=== PATIENT | male | born 1990 | race Caucasian/White ===

== ENCOUNTER 2016-12-29 02:35 | Emergency (ER) | payer BC, OTHER ==
[2016-12-29] MEDS ORDERED: SODIUM CHLORIDE 0.9% 1000ML 1,000 ML IVS ONE (02:57)
[2016-12-29] MEDS ORDERED: KETOROLAC TROMETHAMINE INJ 30 MG/ML VIAL IV ONE (02:57)
--- NOTE | 2016-12-29 02:59 | ED.PDOC ---
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 He often has back pain, however this pain is not similar to that. The pain is severe. He denies any hematuria or dysuria. He has never had Kidney stones. Timing/Duration: 1 hour Severity: severe Improving Factors: nothing Worsening Factors: nothing Associated Symptoms: nausea/vomiting Allergies/Adverse Reactions: Allergies NO KNOWN ALLERGY Allergy (Unverified 12/09/13 22:21) Home Medications: Ambulatory Orders Ketorolac Tromethamine [Toradol Tabs] 10 mg PO Q6H PRN #20 tab 12/29/16 Ondansetron [Zofran Odt] 4 mg PO Q8H PRN #10 tab 12/29/16 Tamsulosin HCl [Flomax] 0.4 mg PO DAILY PRN #10 cap 12/29/16 Tramadol HCl 50 mg PO Q4H PRN #15 tab 12/29/16 Review of Systems - Review of Systems Constitutional: States: no symptoms reported EENTM: States: no symptoms reported Respiratory: States: no symptoms reported Cardiology: States: no symptoms reported Gastrointestinal/Abdominal: States: nausea Genitourinary: States: no symptoms reported Musculoskeletal: States: back pain Skin: States: no symptoms reported Neurological: States: no symptoms reported Endocrine: States: no symptoms reported Hematologic/Lymphatic: States: no symptoms reported All other Systems: Reviewed and Negative Past Medical History (General) - Patient Medical History Hx Seizures: No Hx Stroke: No Hx Dementia: No Hx Asthma: No Hx of COPD: No Hx Cardiac Disorders: No Hx Congestive Heart Failure: No Hx Pacemaker: No Hx Hypertension: No Hx Thyroid Disease: No Hx Diabetes: No Hx Gastroesophageal Reflux: No Hx Renal Disease: No Hx Cancer: No Hx of HIV: No Hx Hepatitis C: No Hx MRSA: No - Vaccination History Hx Tetanus, Diphtheria Vaccination: Yes Hx Influenza Vaccination: No Hx Pneumococcal Vaccination: No Immunizations Up to Date: Yes - Social History Hx Tobacco Use: Yes Hx Alcohol Use: No Family Medical History - Family History Mother Family History: Unknown Physical Exam - Physical Exam General Appearance: Anxious, Obvious distress Ears, Nose, Throat: hearing grossly normal Respiratory: lungs clear, normal breath sounds, no respiratory distress, no accessory muscle use Cardiovascular/Chest: regular rate, rhythm, no edema, no gallop, no murmur Gastrointestinal/Abdominal: normal bowel sounds, non tender, soft, no organomegaly Back Exam: normal inspection, no CVA tenderness, no vertebral tenderness Extremity: normal range of motion Neurologic: alert, normal mood/affect, oriented x 3 Skin Exam: normal color, warm/dry Progress - Progress Progress: 12/29/16 05:55 PATIENT'S PAIN WAS WELL-CONTROLLED WITH TORADOL. - Results/Orders Results/Orders: 12/29/16 12/29/16 12/29/16 02:44 02:48 03:48 Temperature 97.1 F L Pulse Rate [ 77 77 72 Left Radial] Respiratory 20 20 18 Rate Blood Pressure 124/97 115/72 [Left Arm] O2 Sat by Pulse 100 98 Oximetry 12/29/16 12/29/16 04:29 05:03 Temperature Pulse Rate [ 66 60 Left Radial] Respiratory 18 18 Rate Blood Pressure 111/72 104/59 [Left Arm] O2 Sat by Pulse 96 96 Oximetry Laboratory Results Urine Color Yellow (Yellow) 12/29/16 04:10 Urine Appearance Sl cloudy (Clear) 12/29/16 04:10 Urine pH 6.5 (4.5-7.8) 12/29/16 04:10 Ur Specific [place] 1.025 (1.005-1.030) 12/29/16 04:10 Urine Protein Negative mg/dL 12/29/16 04:10 Urine Glucose (UA) Negative mg/dL (Negative) 12/29/16 04:10 Urine Ketones Negative mg/dL (NEGATIVE) 12/29/16 04:10 Urine Blood Large (Negative) H 12/29/16 04:10 Urine Nitrite Negative 12/29/16 04:10 Urine Bilirubin Negative (NEGATIVE) 12/29/16 04:10 Urine Urobilinogen 1.0 mg/dL (0.2-1.0) 12/29/16 04:10 Ur Leukocyte Esterase Negative (Negative) 12/29/16 04:10 Urine RBC Tntc /hpf H 12/29/16 04:10 Urine WBC 0-1 /hpf 12/29/16 04:10 Ur Epithelial Cells 0 /hpf 12/29/16 04:10 Urine Bacteria 0 12/29/16 04:10 Urine Mucus Moderate 12/29/16 04:10 - EKG/XRAY/CT CT: ABD/PELV: 2MM PARTIALLY OBST R URETERAL STONE CT Ordered: Yes CT Interpretation Call Back: No - REPORT SENT Departure - Departure Clinical Impression: Ureteral calculus Time of Disposition: 05:56 Disposition: Discharge to Home or Self Care Condition: Excellent Departure Forms: ED Discharge - Pt. Copy, Patient Portal Self Enrollment Instructions: Kidney Stones -- Adult, DI for Kidney Stones Diet: resume usual diet Prescriptions: Tamsulosin HCl [Flomax] 0.4 mg PO DAILY PRN #10 cap PRN Reason: Pain Ketorolac Tromethamine [Toradol Tabs] 10 mg PO Q6H PRN #20 tab PRN Reason: Pain Tramadol HCl 50 mg PO Q4H PRN #15 tab PRN Reason: Pain Ondansetron [Zofran Odt] 4 mg PO Q8H PRN #10 tab PRN Reason: Nausea/Vomiting Home Medications: Ambulatory Orders Ketorolac Tromethamine [Toradol Tabs] 10 mg PO Q6H PRN #20 tab 12/29/16 Ondansetron [Zofran Odt] 4 mg PO Q8H PRN #10 tab 12/29/16 Tamsulosin HCl [Flomax] 0.4 mg PO DAILY PRN #10 cap 12/29/16 Tramadol HCl 50 mg PO Q4H PRN #15 tab 12/29/16 Additional Instructions: Stay well-hydrated. Follow up if symptoms worsen.
--- NOTE | 2016-12-29 05:38 | CT ---
EXAM DESCRIPTION: Abdoment/Pelvis w/o Contrast12/29/2016 5:35 AM [employer]ER CLINICAL HISTORY: 26 years, Male, right flank pain/hematuria COMPARISON: [None.] TECHNIQUE: Volumetric CT acquisition was performed through the abdomen and pelvis. Images in the axial and coronal planes were presented for interpretation FINDINGS: [The visualized portions of the lung bases are clear.] [The cardiomediastinal structures are within normal limits.] [Within the upper abdomen, the liver and spleen are normal in size and morphology.]The gallbladder is [normal in morphology]. [The intra/extrahepatic biliary tree is normal in appearance]. [The pancreas and adrenal glands are normal.] The right kidney is edematous and enlarged. There is a 2 mm partially obstructing stone in the mid right ureter on axial image 46. There is mild right-sided hydronephrosis and proximal hydroureter. There is an additional 2 mm nonobstructing stone in the mid right renal collecting system on axial image 37. There are no additional distal obstructing stones. The left kidney is normal in size and the left ureter is normal in course and caliber. There are two nonobstructing stones in the inferior pole of the left renal collecting system measuring between 1 and 2 mm in diameter. There are no distal obstructing stones or evidence of hydronephrosis/hydroureter. [Stomach and small intestines are within normal limits without evidence of bowel dilation or wall thickening.] The appendix is well-visualized and normal, best seen on axial image 48 posterior to the cecum. [The colon is stool filled and unremarkable.][Within the pelvis, the bladder and rectum are normal.] The prostate is age appropriate. [There are no pathologically enlarged inguinal, retroperitoneal, portacaval, or mesenteric lymph nodes.] [The soft tissue structures of the abdominal wall are normal.] [The visualized osseous structures are within normal limits for the patient's age.] [The abdominal aorta and its primary branches are normal in course and caliber]. Limited evaluation of the venous structures demonstrates no gross abnormalities. IMPRESSION: 1. Partially obstructing 2 mm mid right ureteral stone.2. Additional nonobstructing bilateral renal calculi. Electronically signed by: Claudio Cramer MD 12/29/2016 5:37 AM [employer]
[2016-12-29 06:10] VITALS: BP 100/60; TEMP 98.3; O2SAT 98
--- NOTE | 2017-01-23 07:35 | CT ---
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 Images in the axial and coronal planes were presented for interpretation FINDINGS: [The visualized portions of the lung bases are clear.] [The cardiomediastinal structures are within normal limits.] [Within the upper abdomen, the liver and spleen are normal in size and morphology.]The gallbladder is [normal in morphology]. [The intra/extrahepatic biliary tree is normal in appearance]. [The pancreas and adrenal glands are normal.] The right kidney is edematous and enlarged. There is a 2 mm partially obstructing stone in the mid right ureter on axial image 46. There is mild right-sided hydronephrosis and proximal hydroureter. There is an additional 2 mm nonobstructing stone in the mid right renal collecting system on axial image 37. There are no additional distal obstructing stones. The left kidney is normal in size and the left ureter is normal in course and caliber. There are two nonobstructing stones in the inferior pole of the left renal collecting system measuring between 1 and 2 mm in diameter. There are no distal obstructing stones or evidence of hydronephrosis/hydroureter. [Stomach and small intestines are within normal limits without evidence of bowel dilation or wall thickening.] The appendix is well-visualized and normal, best seen on axial image 48 posterior to the cecum. [The colon is stool filled and unremarkable.][Within the pelvis, the bladder and rectum are normal.] The prostate is age appropriate. [There are no pathologically enlarged inguinal, retroperitoneal, portacaval, or mesenteric lymph nodes.] [The soft tissue structures of the abdominal wall are normal.] [The visualized osseous structures are within normal limits for the patient's age.] [The abdominal aorta and its primary branches are normal in course and caliber]. Limited evaluation of the venous structures demonstrates no gross abnormalities. IMPRESSION: 1. Partially obstructing 2 mm mid right ureteral stone.2. Additional nonobstructing bilateral renal calculi. Electronically signed by: Claudio Cramer MD 12/29/2016 5:37 AM ENTERTAINMENT USHER
== END 2016-12-29 06:10 | disposition home or self-care (01) ==
LOC: ER 02:35
DX: N20.1 Calculus of ureter (principal); Z87.891 Personal history of nicotine dependence
CPT/HCPCS: 74176; 81001; J1885; J7030

== ENCOUNTER → 2017-05-01 | Outpatient (CLI) | payer BC ==
--- NOTE | 2017-05-01 10:15 | RAD ---
EXAM DESCRIPTION: Cervical Spine,3 Views CLINICAL HISTORY: 26 years Male, NECK PAIN COMPARISON: None. FINDINGS: There is no vertebral body fracture or subluxation. There is no prevertebral soft tissue swelling. The disc spaces are well maintained, and the facet joints are anatomically aligned. The spinous processes are intact. The odontoid is unremarkable, and alignment of the cervicothoracic junction is anatomic. IMPRESSION: Negative exam. Electronically signed by: Yoni Shelley MD 05/01/2017 10:15 AM CDT Workstation: [email or web address]
== END | disposition home or self-care (01) ==
LOC: YCFC.O 08:22
PROVIDERS: ATTEND Nurse Practitioner Family
DX: M54.2 Cervicalgia (principal); M79.602 Pain in left arm

== ENCOUNTER → 2018-08-02 | Outpatient (CLI) | payer BC ==
--- NOTE | 2018-08-02 16:32 | MRI ---
MRI left elbow without contrast INDICATION: Ulnar nerve entrapment initial encounter No specific injury, overuse TECHNIQUE: Noncontrast MR imaging left elbow FINDINGS: Distal biceps intact. Brachialis is intact. No mass lesion or cyst in the cubital tunnel. No inflammation of the ulnar nerve. The posterior band of the ulnar collateral ligament is intact. No advanced arthrosis of the elbow. Minimal elbow fluid. Distal tricep is intact. The remainder of the ulnar collateral ligament is intact. Common flexor and common extensor tendons are intact. No osteochondral lesion. No advanced arthrosis. No fracture or destructive process. IMPRESSION: Essentially negative MRI of the left elbow in particular no mass or cystic lesion compressing the ulnar nerve within the cubital tunnel Electronically signed by: Mikael Kemp MD 08/02/2018 4:31 PM CDT
== END ==
LOC: MRI 10:00
PROVIDERS: ATTEND Nurse Practitioner Family
DX: G56.22 Lesion of ulnar nerve, left upper limb (principal)